=== PATIENT | female | born 1985 | race African-American/Black ===

== ENCOUNTER 2018-08-12 07:13 | Emergency (ER) | payer MEDICAID, OTHER ==
[~2018-08-12] VITALS: Ht 167.6 cm; Wt 102.1 kg
[2018-08-12 07:20] VITALS: BP 119/78
[2018-08-12 08:09] LABS: Basophils # (auto) 0.1 uL; Basophils % (auto) 1.3 % (0.0-2.0); Eosinophils # (auto) 0.2 uL; Eosinophils % (auto) 3.1 % (0.0-7.0); Hematocrit 38.8 % (36.0-46.0); Lymphocytes # (auto) 1.9 uL; Lymphocytes % (auto) 30.9 % (10.0-50.0); Mean Corpuscular Hemoglobin 30.8 pg (28.0-32.0); Mean Corpuscular Hgb Conc. 33.5 g/dL (32.0-36.0); Monocytes # (auto) 0.8 uL; Monocytes % (auto) 13.9 % (0.0-12.0); Neutrophils # (auto) 3.1 uL; Neutrophils % (auto) 50.8 % (37.0-80.0); Nucleated Red Blood Cells % 0.1 %; Platelet Count (auto) 345 10^3/uL (140-450); Red Blood Cells 4.22 10^6/uL (4.0-5.20); Red Cell Distribution Width 14.3 % (11.8-14.3)
[2018-08-12 08:19] LABS: Urine Bacteria NONE SEEN /hpf (None Seen); Urine Blood Negative /uL (Negative); Urine Mucus FEW (None Seen); Urine WBC 3 /hpf (0 - 5)
[2018-08-12 08:22] LABS: Albumin 3.2 g/dL (3.4-5.0); BUN/Creatinine Ratio 13.5; Calcium 8.5 mg/dL (8.5-10.1)
[2018-08-12 08:25] LABS: Bilirubin, Total 0.4 mg/dL (0.2-1.0); Total Protein 7.2 g/dL (6.4-8.2)
[2018-08-12] MEDS ORDERED: ONDANSETRON ODT 4 MG TAB PO ONE (09:00)
== END 2018-08-12 09:34 | disposition home or self-care (01) ==
LOC: ER 07:15
DX: R11.2 Nausea with vomiting, unspecified (principal)
CPT/HCPCS: 36415; 80053; 81001; 81025; 83690; 85025; 99284; Q0162

== ENCOUNTER 2021-04-02 01:22 | Emergency (ER) | payer MEDICAID ==
[~2021-04-02] VITALS: Ht 167.6 cm; Wt 101.2 kg
[2021-04-02 02:44] LABS: Basophils # (auto) 0 10 ^3/uL (0-0.2); Basophils % (auto) 0.4 % (0.0-2.0); Eosinophils # (auto) 0.3 10 ^3/uL (0-0.8); Eosinophils % (auto) 3.7 % (0.0-7.0); Hematocrit 37.5 % (36.0-46.0); Hemoglobin 12.3 g/dL (12.2-16.2); Lymphocytes # (auto) 1.9 10 ^3/uL (0.4-5.4); Lymphocytes % (auto) 22.6 % (10.0-50.0); Mean Corpuscular Hemoglobin 30.8 pg (28.0-32.0); Mean Corpuscular Hgb Conc. 32.7 g/dL (32.0-36.0); Mean Corpuscular Volume 94.2 fL (80.0-100.0); Monocytes # (auto) 0.9 10 ^3/uL (0-1.3); Monocytes % (auto) 10.7 % (0.0-12.0); Neutrophils # (auto) 5.2 10 ^3/uL (1.6-8.6); Neutrophils % (auto) 62.6 % (37.0-80.0); Platelet Count (auto) 313 10^3/uL (140-450); Red Blood Cells 3.98 10^6/uL (4.0-5.20); Red Cell Distribution Width 14.5 % (11.8-14.3); White Blood Cell 8.3 10^3/uL (4.4-10.8)
[2021-04-02 03:00] VITALS: BP 111/64
[2021-04-02 03:07] LABS: Albumin 3.2 g/dL (3.4-5.0); Calcium 8.4 mg/dL (8.5-10.1); Potassium 3.5 mmol/L (3.5-5.1)
[2021-04-02 03:10] LABS: BUN/Creatinine Ratio 11.5
[2021-04-02 03:13] LABS: Bilirubin, Total 0.2 mg/dL (0.2-1.0)
== END 2021-04-02 04:34 | disposition home or self-care (01) ==
LOC: ER 01:26
DX: J06.9 Acute upper respiratory infection, unspecified (principal); M54.6 Pain in thoracic spine; J45.909 Unspecified asthma, uncomplicated; F17.210 Nicotine dependence, cigarettes, uncomplicated; Z20.822 Contact with and (suspected) exposure to COVID-19
CPT/HCPCS: 36415; 71045; 80053; 82728; 83605; 83615; 85025; 87040; 87426

== ENCOUNTER 2022-09-15 08:42 | Emergency (ER) | payer MEDICAID ==
[~2022-09-15] VITALS: Ht 172.7 cm; Wt 113.9 kg
[2022-09-15 09:09] VITALS: BP 141/99
[2022-09-15] MEDS ORDERED: ACETAMINOPHEN 500 MG TAB PO ONE (11:15)
[2022-09-15] MEDS ORDERED: AMOX500C2 PO (11:21)
[2022-09-15] MEDS ORDERED: DEXT1SYP9 PO (11:29)
== END 2022-09-15 11:38 | disposition home or self-care (01) ==
LOC: ER 08:42
DX: H66.92 Otitis media, unspecified, left ear (principal); J45.909 Unspecified asthma, uncomplicated; F17.210 Nicotine dependence, cigarettes, uncomplicated; Z20.822 Contact with and (suspected) exposure to COVID-19
CPT/HCPCS: 36415; 87426; 87804

== ENCOUNTER 2023-03-11 22:48 | Emergency (ER) | payer MEDICAID ==
[~2023-03-11] VITALS: Ht 167.6 cm; Wt 107.2 kg
[~2023-03-11 22:48] MED LIST: AMOX500C2 PO; DEXT1SYP9 PO
[2023-03-12 00:07] LABS: Albumin 3.3 g/dL (3.4-5.0); BUN/Creatinine Ratio 16.3 (10.0-20.0); Potassium 3.5 mmol/L (3.5-5.1)
[2023-03-12 00:10] LABS: Bilirubin, Total 0.2 mg/dL (0.2-1.0); Total Protein 7.5 g/dL (6.4-8.2)
[2023-03-12 00:17] LABS: Basophils # (auto) 0.1 10 ^3/uL (0-0.2); Lymphocytes # (auto) 3.3 10 ^3/uL (0.4-5.4); Neutrophils # (auto) 4.9 10 ^3/uL (1.6-8.6); Neutrophils % (auto) 51.8 % (37.0-80.0); Nucleated Red Blood Cells % 0.1 %; Red Blood Cells 3.98 10^6/uL (4.0-5.20)
[2023-03-12 00:20] LABS: Basophils % (auto) 1.2 % (0.0-2.0); Eosinophils # (auto) 0.2 10 ^3/uL (0-0.8); Eosinophils % (auto) 2.6 % (0.0-7.0); Hematocrit 34.5 % (36.0-46.0); Hemoglobin 11.2 g/dL (12.2-16.2); Lymphocytes % (auto) 35.5 % (10.0-50.0); Mean Corpuscular Hgb Conc. 32.4 g/dL (32.0-36.0); Mean Corpuscular Volume 86.6 fL (80.0-100.0); Monocytes # (auto) 0.8 10 ^3/uL (0-1.3); Monocytes % (auto) 8.9 % (0.0-12.0); White Blood Cell 9.4 10^3/uL (4.4-10.8)
[2023-03-12 00:49] LABS: Red Cell Distribution Width 20.9 % (11.8-14.3)
[2023-03-12 01:23] LABS: Urine Bacteria FEW /hpf (None Seen); Urine Blood Negative /uL (Negative); Urine Hyaline Cast FEW /lpf (0 - 2); Urine Mucus FEW (None Seen); Urine Specific Gravity 1.033 (1.001-1.035); Urine WBC 3 /hpf (0 - 5)
[2023-03-12] MEDS ORDERED: KETOROLAC TROMETH 60MG/2ML VIAL IM ONE (07:00)
[2023-03-12] MEDS ORDERED: HYDR-4902 PO (07:04)
[2023-03-12] MEDS ORDERED: TAM04C PO (07:04)
[2023-03-12 07:30] VITALS: BP 144/68
== END 2023-03-12 07:33 | disposition home or self-care (01) ==
LOC: ER 22:48
DX: N20.0 Calculus of kidney (principal); J45.909 Unspecified asthma, uncomplicated; F17.210 Nicotine dependence, cigarettes, uncomplicated; Z88.6 Allergy status to analgesic agent
CPT/HCPCS: 36415; 74176; 80053; 81001; 83690; 85025; 96372; 99285; J1885

== ENCOUNTER 2024-05-16 08:23 | Emergency (ER) | payer MEDICAID ==
[~2024-05-16] VITALS: Ht 167.6 cm; Wt 97.2 kg
[~2024-05-16 08:23] MED LIST changes: +HYDR-4902 PO; +TAMS-35 PO
[2024-05-16 08:43] LABS: Urine Bacteria None Seen /hpf (None Seen)
[2024-05-16 08:59] LABS: Urine Blood Negative /uL (Negative); Urine Clarity Clear (Clear); Urine Color Light-Yellow (Yellow); Urine Mucus FEW (None Seen); Urine Protein, UAD Negative (Negative); Urine Specific Gravity 1.016 (1.001-1.035); Urine Urobilinogen Normal (Negative); Urine WBC 1 /hpf (0 - 5)
[2024-05-16 09:11] LABS: Basophils # (auto) 0.1 10 ^3/uL (0-0.2); Eosinophils # (auto) 0.3 10 ^3/uL (0-0.8); Hemoglobin 7.8 g/dL (12.2-16.2); Neutrophils # (auto) 1.7 10 ^3/uL (1.6-8.6); White Blood Cell 4.6 10^3/uL (4.4-10.8)
[2024-05-16 09:13] LABS: Basophils % (auto) 1.5 % (0.0-2.0); Hematocrit 26.6 % (36.0-46.0); Mean Corpuscular Hemoglobin 21.1 pg (28.0-32.0); Mean Corpuscular Hgb Conc. 29.4 g/dL (32.0-36.0); Mean Corpuscular Volume 71.9 fL (80.0-100.0); Monocytes # (auto) 0.4 10 ^3/uL (0-1.3); Monocytes % (auto) 9.7 % (0.0-12.0); Neutrophils % (auto) 37.8 % (37.0-80.0); Nucleated Red Blood Cells % 0.1 %
[2024-05-16 09:24] LABS: Chloride 112 mmol/L (98-107); Potassium 3.9 mmol/L (3.5-5.1); Sodium 139 mmol/L (136-145)
[2024-05-16 09:25] LABS: Anion Gap 5 (5-15); Calcium 9.2 mg/dL (8.5-10.1); Carbon Dioxide 22 mmol/L (20-30)
[2024-05-16 09:30] LABS: Glucose 87 mg/dL (74-106)
[2024-05-16 09:31] LABS: BUN/Creatinine Ratio 10.7 (10.0-20.0); Blood Urea Nitrogen 8 mg/dL (9-23)
[2024-05-16] MEDS: LIDOCAINE VISCOUS 2% 15ML UD PO ONE (09:32)
[2024-05-16] MEDS: MAALOX PLUS or MAALOX 30 ML PO ONE (09:32)
[2024-05-16] MEDS: FAMOTIDINE 20 MG TAB PO ONE (09:32)
[2024-05-16] MEDS: AMOXICILLIN 200MG/5ml ORAL Susp 50ML PO ONE (09:36)
[2024-05-16] MEDS: ONDANSETRON HCL 4 MG/2 ML VIAL IV ONE (09:45)
[2024-05-16 10:16] LABS: Lipase 30 U/L (12-53)
[2024-05-16 11:00] VITALS: BP 131/83; PULSE 80; RESP 16; TEMP 98.9; O2SAT 100
[2024-05-16] MEDS ORDERED: MAA30LQ GT (11:11)
[2024-05-16] MEDS ORDERED: AMOX500T86 PO (11:11)
[2024-05-16] MEDS ORDERED: AZIT500T66 PO (11:11)
[2024-05-16] MEDS ORDERED: LIDO2SOL26 MT (11:11)
[2024-05-16] MEDS ORDERED: FAMO20TA10 PO (11:11)
== END 2024-05-16 11:44 | disposition home or self-care (01) ==
LOC: ER 08:23
DX: K25.9 Gastric ulcer, unspecified as acute or chronic, without hemorrhage or perforation (principal); F43.9 Reaction to severe stress, unspecified; D64.9 Anemia, unspecified; J45.909 Unspecified asthma, uncomplicated; F17.210 Nicotine dependence, cigarettes, uncomplicated; Z87.442 Personal history of urinary calculi
CPT/HCPCS: 36415; 80048; 81001; 83690; 85025; 96374; 99284; J2405

== ENCOUNTER → 2024-11-30 | Outpatient (CLI) | payer MEDICAID ==
[~2024-11-30] MED LIST changes: +AMOX500T86 PO; +AZIT500T66 PO; +FAMO20TA10 PO; +LIDO2SOL26 MT; +MAA30LQ GT
[2024-11-30 13:51] LABS: Basophils # (auto) 0 10 ^3/uL (0-0.2); Basophils % (auto) 0.7 % (0.0-2.0); Eosinophils # (auto) 0.2 10 ^3/uL (0-0.8); Eosinophils % (auto) 3.6 % (0.0-7.0); Hematocrit 38.6 % (36.0-46.0); Lymphocytes # (auto) 2.4 10 ^3/uL (0.4-5.4); Lymphocytes % (auto) 41.2 % (10.0-50.0); Mean Corpuscular Hemoglobin 32.1 pg (28.0-32.0); Mean Corpuscular Hgb Conc. 33.6 g/dL (32.0-36.0); Mean Corpuscular Volume 95.7 fL (80.0-100.0); Monocytes # (auto) 0.5 10 ^3/uL (0-1.3); Monocytes % (auto) 8.3 % (0.0-12.0); Neutrophils # (auto) 2.6 10 ^3/uL (1.6-8.6); Neutrophils % (auto) 46.2 % (37.0-80.0); Nucleated Red Blood Cells % 0.1 %; Platelet Count (auto) 381 10^3/uL (140-450); Red Blood Cells 4.03 10^6/uL (4.0-5.20); Red Cell Distribution Width 14.6 % (11.8-14.3); White Blood Cell 5.7 10^3/uL (4.4-10.8)
[2024-11-30 14:25] LABS: Alanine Aminotransferase 16 U/L (7-40); Albumin 4.5 g/dL (3.2-4.8); Alkaline Phosphatase 54 U/L (46-116); Anion Gap 6 (5-15); Aspartate Aminotransferase 18 U/L (13-40); BUN/Creatinine Ratio 10.4 (10.0-20.0); Beta HCG, Quantitative 0.4 mIU/mL (1.5-4.2); Bilirubin, Total 0.3 mg/dL (0.2-1.0); Blood Urea Nitrogen 11 mg/dL (9-23); Calcium 9.8 mg/dL (8.7-10.4); Carbon Dioxide 27 mmol/L (20-31); Glucose 97 mg/dL (74-106); Potassium 4.1 mmol/L (3.5-5.1); Sodium 142 mmol/L (136-145)
[2024-11-30 14:26] LABS: Chloride 109 mmol/L (98-107)
[2024-11-30 14:28] LABS: Thyroid Stimulating Hormone 1.66 uIU/mL (0.55-4.78)
== END | disposition home or self-care (01) ==
LOC: LAB 13:28
PROVIDERS: ATTEND Obstetrics & Gynecology
DX: Z01.419 Encounter for gynecological examination (general) (routine) without abnormal findings (principal); E28.2 Polycystic ovarian syndrome
CPT/HCPCS: 36415; 80053; 83036; 84443; 84702; 85025; 87086; 87088; 87186

== ENCOUNTER 2025-09-09 07:12 | Emergency (ER) | payer MEDICAID ==
[~2025-09-09] VITALS: Ht 167.6 cm; Wt 117.4 kg
--- NOTE | 2025-09-09 08:28 | ED.PDOC ---
Musculoskeletal HPI Comments 40 y.o female presents to the ED with a chief complaint of left second toe pain. The pain began four days ago after she struck her toe on an object at work. The patient describes the pain as severe, 10/10 on a pain scale, sharp in quality, and notes associated swelling and purulent discharge. She has minimal weight-bearing capacity on the affected foot. Neurologically, she denies any numbness or tingling sensations. Chief Complaint: Lower Extremity Time Seen by MD: 07:35 Primary Care Provider: CHARLIE Reviewed Notes: Nurses Notes, Medications, Allergies Allergies: Coded Allergies: NO KNOWN ALLERGIES (Unverified , 08/12/18) Home Meds Active Scripts Azithromycin (Azithromycin) 500 Mg Tab, 1 TAB PO DAILY for 5 Days, #5 TAB 0 Refills Prov:AYANA QUEZADA MD 05/16/24 Lidocaine HCl (Mouth-Throat) (Lidocaine HCl Viscous) 2 % Carmina, 2 % MT TID for 5 Days, #100 ML Prov:AYANA QUEZADA MD 05/16/24 Famotidine (PEPCID TABLET) 20 Mg Tb, 1 TAB PO BID, #60 TAB 5 Refills Prov:AYANA QUEZADA MD 05/16/24 Amoxicillin & Pot Clavulanate (Augmentin) 500 Mg Tab, 1 TAB PO BID for 14 Days, #28 TAB 0 Refills Prov:AYANA QUEZADA MD 05/16/24 Alum & Mag Hydrox-Simethicone (Maalox Plus) 30 Ml Ss, 30 ML GT BID for 20 Days, #100 ML 0 Refills Prov:AYANA QUEZADA MD 05/16/24 Hydrocodone-Acetaminophen (Hydrocodone Bitartrate/AC 5-325 mg) 1 Tab Tab, 1 TAB PO TID, #14 TAB Prov:SOSA MTZ 03/12/23 Tamsulosin Hcl (Flomax) 0.4 Mg Cap, 1 CAP PO DAILY, #20 CAP 11 Refills Prov:SOSA MTZ 03/12/23 Dextromethorphan-Guaifenesin (Robitussin-Dm) 10 Ml Sr, 20 ML PO Q4HPRN PRN, #237 SYP 0 Refills Prov:BITA ROBERT 09/15/22 Amoxicillin Trihydrate (Amoxicillin) 500 Mg Cap, 2 CAP PO TID for 10 Days, #60 CAP 0 Refills Prov:BITA ROBERT [employer] 09/15/22 Information Source: Patient Mode of Arrival: Ambulatory Location: Left Extremity Location: Toe 2 Timing: Days (4) Severity: Moderate Able to Move Extremity: Yes Bear Weight: Limited Pain: Moderate Mechanism: None Circumstances: Accident Onset of Symptoms: After Trauma Symptoms: Swelling, Pain DVT Risk Factors: NONE Associated signs and symptoms: Other Past Medical History PAST MEDICAL HISTORY: Asthma Surgical History: Denies all surgeries [employer] History: Denies all [employer] Hx Family History Family History: Reviewed,noncontributory to illness, Family hx of DM Social History Smoker: Cigarettes, Less Than 1 Pack/Day Alcohol: Denies ETOH Use Drugs: Denies Drug Use Lives In: Home Constitutional: denies: chills, diaphoresis, fatigue, fever, malaise, sweats, weakness, others EENTM: denies: blurred vision, double vision, ear bleeding, ear discharge, ear drainage, ear pain, ear ringing, eye pain, eye redness, hearing loss, mouth pain, mouth swelling, nasal discharge, nose bleeding, nose congestion, nose pain, photophobia, tearing, throat pain, throat swelling, voice changes, others Respiratory: denies: cough, hemoptysis, orthopnea, SOB at rest, shortness of breath, SOB with excertion, stridor, wheezing, others Cardiovascular: denies: chest pain, dizzy spells, diaphoresis, Dyspnea on exertion, edema, irregular heart beat, left arm pain, lightheadedness, palpitations, PND, syncope, others Gastrointestinal: denies: abdomen distended, abdominal pain, blood streaked bowels, constipated, diarrhea, dysphagia, difficulty swallowing, hematemesis, melena, nausea, poor appetite, poor fluid intake, rectal bleeding, rectal pain, vomiting, others Genitourinary: denies: abnormal vagina bleeding, burning, dyspareunia, dysuria, flank pain, frequency, hematuria, incontinence, pain, , vagina discharge, urgency, others Neurological: denies: dizziness, fainting, headache, left sided numbness, left sided weakness, numbness, paresthesia, pre-existing deficit, right sided numbness, right sided weakness, seizure, speech problems, tingling, tremors, weakness, others Musculoskeletal: reports: others (left second toe ); denies: back pain, gout, joint pain, joint swelling, muscle pain, muscle stiffness, neck pain Integumetry: denies: bruises, change in color, change in hair/nails, dryness, laceration, lesions, lumps, rash, wounds, others Allergic/Immunocompromised: denies: Difficulty Healing, Frequent Infections, Hives, Itching, others Hematologic/Lymphatic: denies: anemia, blood clots, easy bleeding, easy bruising, swollen glands, others Endocrine: denies: excessive hunger, excessive sweating, excessive thirst, excessive urination, flushing, intolerance to cold, intolerance to heat, unexplained weight gain, unexplained weight loss, others Psychiatric: denies: anxiety, bipolar disorder, depression, hopeless, panic disorder, schizophrenia, sleepless, suicidal, others All Other Systems: Reviewed and Negative Physical Exam General Appearance: Moderate Distress HEENT: Normal ENT Inspection, Pharynx Normal, TMs Normal Neck: Full Range of Motion, Non-Tender, Normal, Normal Inspection Respiratory: Chest Non-Tender, Lungs Clear, No Accessory Muscle Use, No Respiratory Distress, Normal Breath Sounds Cardiovascular: No Edema, No JVD, No Murmur, No Gallop, Normal Peripheral Pulses, Regular Rate/Rhythm Breast Exam: Deferred Gastrointestinal: No Organomegaly, Non Tender, No Pulsatile Mass, Normal Bowel Sounds, Soft Genitalia: Deferred Pelvic: Deferred Rectal: Deferred Extremities: Swelling (Left 2nd toe) Musculoskeletal : Apperance: Normal Neurologic: Alert, No Motor Deficits, No Sensory Deficits Cerebellar Function: NOT DONE Reflexes: NOT DONE Skin: Normal Color, Wounds (Left 2nd toe) Peripheral Pulses: 3+ Radial (R), 3+ Radial (L) Lymphatic: No Adenopathy Was a procedure done? Was a procedure done?: No Differential Diagnosis EXT Differential Diagnosis: Cellulitis, Sprain, Dislocation, Contusion, Strain X-Ray, Labs, Meds, VS Vital Signs Date Time Temp Pulse Resp B/P (MAP) Pulse Ox O2 Delivery O2 Flow Rate FiO2 09/09/25 07:14 98.7 99 16 144/93 100 98.7 Patient alert. Vitals stable. Came in because of injury to the left foot pain Answering questions. On examination mild swelling of the left 2nd toe. She is ambulating. X-ray of the foot does not show any acute process. Early infection. No area to drain. Was given prescription of amoxicillin clindamycin antibiotic. Explained to the patient. Was told to follow up with her primary care physician. Was told to come back if there is any problem. Time of 1ST Reevaluation: 08:22 Reevaluation 1ST: Unchanged Patient Education/Counseling: Diagnosis, Treatment, Prognosis Family Education/Counseling: No Family Present Departure 1 Departure Time of Disposition: 09:07 Impression: Primary Impression: Cellulitis Qualified Codes: L03.116 - Cellulitis of left lower limb Disposition: HOME / SELF CARE / HOMELESS Condition: Good e-Prescriptions Clindamycin Hcl (Clindamycin Hcl) 300 Mg Cap 1 CAP PO TID for 10 Days, #30 CAP Prov: URIEL AUGUST MD 09/09/25 Amoxicillin Trihydrate (Amoxicillin) 500 Mg Tab 1 TAB PO TID for 10 Days, #30 TAB Prov: URIEL AUGUST MD 09/09/25 Discharged With: Self Critical Care Note Critical Care Time?: No Stability Stability form required: No I personally scribed for URIEL AUGUST MD ([email or web address]) on 09/09/25 at 08:28. Electronically submitted by Socorro Diane ([facility]). URIEL AUGUST MD Sep 09, 2025 08:28
--- NOTE | 2025-09-09 08:36 | DVH ---
XY L FOOT 2 VIEW XRAY, INDICATION: fx TECHNICAL DATA: Frontal, oblique and lateral views were obtained of the left foot. COMPARISON: None FINDINGS: No fracture is identified. No cortical erosion. Joint spaces are maintained. Alignment is anatomic. T he hallux sesamoids appear normal. There soft tissue swelling of the 2nd digit. IMPRESSION: No acute osseous abnormality. Soft tissue swelling in the 2nd digit. If there is clinical concern f or infection, MRI of the foot is recommended.
[2025-09-09] MEDS ORDERED: CLIN1CAP70 PO (09:07)
[2025-09-09] MEDS ORDERED: AMOX500T3 PO (09:07)
[2025-09-09 09:09] VITALS: BP 137/91; PULSE 87; RESP 18; TEMP 98.3; O2SAT 98
[2025-09-09] MEDS: TETANUS-DIPTH-ACEL PERTUSSIS 0.5ML SYR Tdap IM ONE (09:35)
== END 2025-09-09 09:24 | disposition home or self-care (01) ==
LOC: ER 07:12
DX: L03.116 Cellulitis of left lower limb (principal); F17.210 Nicotine dependence, cigarettes, uncomplicated; J45.909 Unspecified asthma, uncomplicated; Z79.899 Other long term (current) drug therapy
CPT/HCPCS: 73620; 90471; 90715